=== PATIENT | female | born 1950 | race Caucasian/White ===

== ENCOUNTER 2016-06-08 09:50 | Outpatient (CLI) | payer MEDICARE, OTHER ==
[2016-06-08 10:50] LABS: eGFR (African) > 60; eGFR (Non-African) > 60
== END 2016-06-08 09:52 ==
LOC: LAB 09:50
PROVIDERS: ATTEND Family Medicine
DX: E78.2 Mixed hyperlipidemia (principal)
CPT/HCPCS: 36415; 80053; 80061

== ENCOUNTER 2017-03-15 13:52 | Outpatient (CLI) | payer MEDICARE, OTHER | END 2017-03-15 13:53 | LOC: LABRHC 13:52 | PROVIDERS: ATTEND Family Medicine | DX: R30.0 Dysuria (principal) | CPT/HCPCS: 87086 ==

== ENCOUNTER 2017-06-12 10:27 | Outpatient (CLI) | payer MEDICARE, OTHER ==
[2017-06-12 11:10] LABS: eGFR (African) > 60; eGFR (Non-African) > 60
== END 2017-06-12 10:30 ==
LOC: LAB 10:27
PROVIDERS: ATTEND Family Medicine
DX: E78.2 Mixed hyperlipidemia (principal); L65.9 Nonscarring hair loss, unspecified
CPT/HCPCS: 36415; 80053; 80061; 84443

== ENCOUNTER 2017-06-13 09:59 | Outpatient (CLI) | payer MEDICARE, OTHER ==
--- NOTE | 2017-06-13 20:17 | Diagnostic Imaging Report ---
JAMES ARCEO~ [facility] [address] [facility].[address] [address] ~ ~ ~ ~ Report Submission Date: Jun 13, 2017 3:17:41 PM CDT Patient ~ Study Name: LONG EVANS ~ Date: Jun 13, 2017 12:52:46 PM CDT ~ Modality Type: CT\SR Gender: F ~ Description: CT ABD PELVIS W W/ : 50 ~ Institution: [facility] Physician: JAMES ARCEO ~ ~ ~ Examination: CT Abdomen/pelvis History: Generalized abdominal discomfort Comparison exams: None available Technique: CT Abdomen/pelvis with IV protocol.~ Findings:~ Liver, spleen, adrenals, pancreas, and kidneys are without gross irregularity.~ No abnormal enhancement. Surgical clips gallbladder fossa. No suspicious renal calcifications. Ureters are nondilated in their course through the abdomen and pelvis. No central calcifications. Abdominal aorta without aneurysm. Minimal peripheral atherosclerotic disease. Cardiac silhouette is not enlarged. No pericardial effusion. No abnormal small bowel dilation. Stool within the large bowel limiting sensitivity. No mesenteric inflammatory changes or free fluid. Few sigmoid diverticula. Minimal thickening of the sigmoid mucosa. No adjacent fluid collection. Appendix not visualized. Few scattered subcentimeter mesenteric lymph nodes. Large hiatal hernia. Osseous structures demonstrate mild degenerative changes. Lung bases without infiltrate.~ No effusion. Impression: Mild sigmoid colon thickening/inflammation. ~No evidence for abscess. No acute upper abdominal organ inflammatory process. Large hiatal hernia. No suspicious renal calcifications or abnormal ureteric dilation. No lung base consolidation/effusion. ~ Electronically signed on Jun 13, 2017 3:17:41 PM CDT by: Taco RASMUSSEN
== END 2017-06-13 10:00 ==
LOC: RAD 09:59
PROVIDERS: ATTEND Family Medicine
DX: R10.84 Generalized abdominal pain (principal)
CPT/HCPCS: 74178; Q9967

== ENCOUNTER 2018-06-17 09:59 | Outpatient (CLI) | payer MEDICARE, OTHER ==
[2018-06-17 10:58] LABS: eGFR (Non-African) > 60
== END 2018-06-17 10:02 ==
LOC: LAB 09:59
PROVIDERS: ATTEND Family Medicine
DX: Z13.6 Encounter for screening for cardiovascular disorders (principal)
CPT/HCPCS: 36415; 80053; 80061

== ENCOUNTER 2018-06-21 10:24 | Outpatient (CLI) | payer MEDICARE, OTHER ==
--- NOTE | 2018-06-21 21:49 | Diagnostic Imaging Report ---
JAMES ARCEO [facility] [address] [address] Report Submission Date: Jun 21, 2018 3:12:49 PM CDT Patient Study Name: LONG EVANS Date: Jun 21, 2018 12:00:00 AM CDT Modality Type: DEXA\OT Gender: F Description: DEXA : 50 Institution: [facility] Physician: JAMES ARCEO Examination: Bone density History: Assess bone mineralization Comparison exams: None available Technique: DEXA protocol Findings: Average bone mineral density from L1 through L4: 1.031 grams cm2. T score: -1.2 Average bone mineral density of the left femoral neck: 0.905 grams cm2. T score: -1.0 Average bone mineral density of the right femoral neck: 0.952 grams cm2. T score: -0.6 Impression: Lumbar spine osteopenia. Normal hip mineralization. Electronically signed on Jun 21, 2018 3:12:49 PM CDT by: Taco RASMUSSEN
--- NOTE | 2018-06-21 21:49 | Diagnostic Imaging Report ---
JAMES ARCEO [facility] [address] [address] Report Submission Date: Jun 21, 2018 3:14:22 PM CDT Patient Study Name: LONG EVANS Date: Jun 21, 2018 10:33:00 AM CDT Modality Type: US Gender: F Description: US AAA SCREEN MEDICARE : 50 Institution: [facility] Physician: JAMES ARCEO Examination: Ultrasound aorta History: Evaluate for aneurysm Comparison exams: None available Findings: Proximal aorta measures 2.4 cm maximally. Mid aorta measures 2.2 cm maximally. Distal aorta measures 1.6 cm maximally. Iliac vessels measure 1.2 cm. No peripheral calcification or thrombus. Impression: No evidence for abdominal aortic aneurysm Electronically signed on Jun 21, 2018 3:14:22 PM CDT by: Taco RASMUSSEN
== END 2018-06-21 10:26 ==
LOC: RAD 10:24
PROVIDERS: ATTEND Family Medicine
DX: Z78.0 Asymptomatic menopausal state (principal); Z13.6 Encounter for screening for cardiovascular disorders; M85.88 Other specified disorders of bone density and structure, other site
CPT/HCPCS: 77080